=== PATIENT | male | born 1975 | race Hispanic/Latino ===

== ENCOUNTER 2017-09-12 14:42 | Emergency (ER) | payer SELFPAY ==
[2017-09-12] MEDS ORDERED: Lidocaine 1% 20 ML MDV ONE (15:19)
== END 2017-09-12 16:39 | disposition home or self-care (01) ==
LOC: NAV ERS 14:42
DX: L03.311 Cellulitis of abdominal wall (principal); E11.9 Type 2 diabetes mellitus without complications; E78.5 Hyperlipidemia, unspecified; I10 Essential (primary) hypertension; F17.210 Nicotine dependence, cigarettes, uncomplicated; F41.9 Anxiety disorder, unspecified; Z79.4 Long term (current) use of insulin; Z79.899 Other long term (current) drug therapy
CPT/HCPCS: 10060; 87070; 87077; 87205; J2001

== ENCOUNTER 2018-01-11 12:44 | Emergency (ER) | payer SELFPAY ==
[2018-01-11] MEDS ORDERED: Ondansetron ODT 4 MG TAB ONE (13:17)
--- NOTE | 2018-01-11 13:53 | CT ---
HEAD CT WITHOUT CONTRAST: 01/11/2018 HISTORY: Vomiting. Trauma. Pain. Unsteady gait. Slurred speech. COMPARISON: None. TECHNIQUE: Serial axial CT imaging was obtained at 5 mm intervals, from the vertex through the skull base, witho ut contrast. Coronal and sagittal reformatted imaging obtained. FINDINGS: The imaged paranasal sinuses/mastoid air cells are well aerated. There is no displaced calvarial fra cture. There is no intracranial hemorrhage, midline shift, mass effect, or ventricular enlargement. IMPRESSION: No intracranial hemorrhage or displaced calvarial fracture. POS: [facility]
== END 2018-01-11 14:05 | disposition home or self-care (01) ==
LOC: NAV ERS 12:44
DX: S06.0X0A Concussion without loss of consciousness, initial encounter (principal); S00.93XA Contusion of unspecified part of head, initial encounter; E11.9 Type 2 diabetes mellitus without complications; E78.5 Hyperlipidemia, unspecified; I10 Essential (primary) hypertension; F41.9 Anxiety disorder, unspecified; F17.210 Nicotine dependence, cigarettes, uncomplicated; Z79.899 Other long term (current) drug therapy; Z79.4 Long term (current) use of insulin; W22.09XA Striking against other stationary object, initial encounter
CPT/HCPCS: 70450; Q0162

== ENCOUNTER 2018-05-15 13:09 | Emergency (ER) | payer SELFPAY ==
[~2018-05-15 13:09] MED LIST: Iopamidol 370 76% 100 ML VIAL ONE
[2018-05-15] MEDS ORDERED: Ondansetron HCl/PF 4 MG/2 ML Vial ONE (13:25)
[2018-05-15] MEDS ORDERED: Sodium Chloride 0.9% 1,000 ML ONE ×3 (13:25→14:55)
[2018-05-15] MEDS ORDERED: Fentanyl 100 MCG/2 ML VIAL ONE ×2 (13:27→17:00)
[2018-05-15 13:51] LABS: #Basophils 0.1 thou/uL (0.0-0.2); #Lymphocytes 1.4 thou/uL (1.20-3.40); #Monocytes 0.3 thou/uL (0.11-0.59); #Neutrophils 112.4 thou/uL (1.40-6.50); %Basophils 0.7 % (0.0-1.0); %Eosinophils 0.1 % (0.0-10.0); %Monocytes 2.4 % (0.0-10.0); %Neutrophils 86.9 % (42.0-75.0); Differential Comment SCANNED; Hemoglobin 19.6 g/dL (14.0-18.0); Mean Corpuscular HGB CONC 32.6 g/dL (32.0-36.0); Mean Corpuscular Hemoglobin 28.1 pg (27.0-31.0); Mean Corpuscular Volume 86.3 fL (78.0-98.0); Mean Platelet Volume 6.3 fL (7.4-10.4); Platelet Count 440 thou/uL (130-400); RBC Distribution Width 12.3 % (11.5-14.5); Red Blood Cell (RBC) Count 6.98 mill/uL (4.70-6.10); White Blood Cell (WBC) Count 14.3 thou/uL (4.8-10.8)
[2018-05-15 13:56] LABS: Lactic Acid 3.1 mmol/L (0.5-2.2)
[2018-05-15 14:00] LABS: ALT (SGPT) 50 U/L (8-55); AST (SGOT) 31 U/L (5-34); Albumin 3.5 g/dL (3.5-5.0); Alkaline Phosphatase 86 U/L (40-150); Anion Gap 23 mmol/L (10-20); BUN (Urea Nitrogen) 17 mg/dL (8.9-20.6); Bilirubin, Total 0.5 mg/dL (0.2-1.2); Calc. Creatinine Clearance 0 mL/min (70-130); Carbon Dioxide 17 mmol/L (22-29); Chloride 98 mmol/L (98-107); Estimated GFR-MDRD 69; Globulin 4.1 g/dL (2.4-3.5); Glucose 312 mg/dL (70-105); Lipase 65 U/L (8-78); Potassium 3.9 mmol/L (3.5-5.1); Protein, Total 7.6 g/dL (6.0-8.3); Sodium 134 mmol/L (136-145)
[2018-05-15 14:01] LABS: CKMB 2.8 ng/mL (0-6.6); Troponin I 0.014 ng/mL (< 0.028)
[2018-05-15 14:11] LABS: Bilirubin Small (Negative); Blood, Urine Large (Negative); Glucose, Urine (Dipstick) >=1000 mg/dL (Negative); Leukocyte Negative (Negative); Nitrite Negative (Negative); Protein, Urine (Dipstick) > or equal to 300 mg/dL (Neg-Trace); Urobilinogen 0.2 mg/dL (0.2-1.0)
[2018-05-15 14:16] LABS: Clarity SL HAZY (Clear)
[2018-05-15 14:18] LABS: Bacteria/HPF Rare-Few HPF (None Seen); Squamous Epithelial 0-3 HPF (0-3); WBC/HPF 0-3 HPF (0-3)
[2018-05-15 14:20] LABS: Specific Gravity, Urine 1.043 (1.002-1.036)
--- NOTE | 2018-05-15 15:31 | RAD ---
AP VIEW OF THE CHEST: INDICATION: History of vomiting and chest pain. COMPARISON: None. FINDINGS: There are low lung volumes. No consolidation or pleural effusion or pneumothorax is evident. Heart size is accentuated by the exam technique and depth of inspiration. No acute osseous abnormality is evident. IMPRESSION: No definite acute cardiopulmonary abnormality. POS: [facility]
--- NOTE | 2018-05-15 16:02 | CT ---
CTA OF THE THORAX WITH IV CONTRAST AND 3D REFORMATTED IMAGING 05/15/18 INDICATION: History of chest pain, vomiting and shortness of breath. FINDINGS: The timing of the contrast bolus precludes evaluation for PE. No confluent air space opacity or pleur al effusion is noted. No pneumothorax is present. No enlarged lymph nodes are present. The abdomen is commented upon on the subsequently dictated CT of the abdomen and pelvis. No acute osseous abnormali ty is evident. IMPRESSION: 1. Suboptimal examination for evaluation of PE. The timing of the bolus precludes evaluation for PE. If clinical concern persists, a VQ scan may be helpful. 2. No definite acute cardiopulmonary abnormality. POS: [facility]
--- NOTE | 2018-05-15 16:06 | CT ---
CT OF THE ABDOMEN AND PELVIS WITH IV CONTRAST: 05/15/18 INDICATION: History of vomiting, right sided abdominal pain and chest pain. COMPARISON: Prior exam dated 05/12/16. FINDINGS: The lung bases are clear. There is mild fatty infiltration of the liver. The gallbladder is surgicall y absent. The pancreas and adrenal glands are unremarkable. There is stable left renal cyst. No hydro nephrosis is evident. No free fluid or large lymph nodes are evident. There is scattered diverticula involving the colon without evidence of active diverticulitis. Small bowel is of normal caliber. The appendix is probably surgically absent. The bladder, rectum, and perirectal soft tissues are unremark able. No definite acute osseous abnormality is evident. Mild wedge compression abnormality of T12 is stable. IMPRESSION: 1. No definite acute abnormality. 2. Fatty liver. 3. Stable left renal cysts. 4. Stable T12 compression abnormality. 5. Colonic diverticulosis. POS: [facility]
[2018-05-15 16:13] LABS: Lactic Acid 2.3 mmol/L (0.5-2.2)
[2018-05-15 16:16] LABS: Anion Gap 21 mmol/L (10-20); BUN (Urea Nitrogen) 14 mg/dL (8.9-20.6); Calc. Creatinine Clearance 0 mL/min (70-130); Calcium 8.5 mg/dL (7.8-10.44); Carbon Dioxide 13 mmol/L (22-29); Chloride 102 mmol/L (98-107); Estimated GFR-MDRD Greater than 90; Glucose 252 mg/dL (70-105); Potassium 3.7 mmol/L (3.5-5.1); Sodium 132 mmol/L (136-145)
== END 2018-05-15 17:38 | disposition short-term general hospital (02) ==
LOC: NAV ERS 13:09
DX: E86.0 Dehydration (principal); E11.65 Type 2 diabetes mellitus with hyperglycemia; R07.9 Chest pain, unspecified; E78.5 Hyperlipidemia, unspecified; I10 Essential (primary) hypertension; F17.210 Nicotine dependence, cigarettes, uncomplicated; Z79.4 Long term (current) use of insulin; Z79.899 Other long term (current) drug therapy
CPT/HCPCS: 71045; 71275; 74177; 80053; 81003; 81015; 82553; 83605; 83690; 84484; 85025; 85379; 93005; 94760; 96361; 96374; 96375; 96376; J2405; J3010; J7050

== ENCOUNTER 2018-06-06 22:17 | Emergency (ER) | payer SELFPAY ==
[2018-06-06] MEDS ORDERED: Mag-Al Plus 1200 MG/1200 MG/120 MG/30 ML UDCUP ONE (22:50)
[2018-06-06] MEDS ORDERED: Lidocaine Viscous Sol 2% 15 ml UD Cup ONE (22:50)
[2018-06-06] MEDS ORDERED: Pantoprazole 40 MG VIAL ONE (22:50)
[2018-06-06 23:00] LABS: INR-International Normal Ratio 0.8; Prothrombin Time 11.5 SEC (12.0-14.7)
[2018-06-06 23:05] LABS: #Basophils 0.1 thou/uL (0.0-0.2); #Eosinphils 0.3 thou/uL (0.0-0.7); #Lymphocytes 3.5 thou/uL (1.20-3.40); #Monocytes 0.5 thou/uL (0.11-0.59); #Neutrophils 4.6 thou/uL (1.40-6.50); %Basophils 1.2 % (0.0-1.0); %Eosinophils 3.8 % (0.0-10.0); %Lymphocytes 39.2 % (21.0-51.0); %Neutrophils 50.8 % (42.0-75.0); Hemoglobin 17.8 g/dL (14.0-18.0); Mean Corpuscular HGB CONC 32.7 g/dL (32.0-36.0); Mean Corpuscular Hemoglobin 28.2 pg (27.0-31.0); Mean Corpuscular Volume 86.3 fL (78.0-98.0); Mean Platelet Volume 6.2 fL (7.4-10.4); Platelet Count 414 thou/uL (130-400); RBC Distribution Width 12.5 % (11.5-14.5)
--- NOTE | 2018-06-06 23:08 | RAD ---
PORTABLE SEMIUPRIGHT FRONTAL CHEST RADIOGRAPH: Date: 06-06-18 Comparison: 05-15-18 History: Possible ingestion of ammonia. FINDINGS: Heart and mediastinal contours are within normal limits. No pneumothorax, pleural fluid, focal consol idation or alveolar edema. IMPRESSION: No acute findings. POS: [facility]
[2018-06-06 23:11] LABS: Chloride 99 mmol/L (98-107); Potassium 3.9 mmol/L (3.5-5.1); Sodium 134 mmol/L (136-145)
[2018-06-06 23:15] LABS: Carbon Dioxide 22 mmol/L (22-29)
[2018-06-06 23:16] LABS: Anion Gap 19 mmol/L (10-20); BUN (Urea Nitrogen) 26 mg/dL (8.9-20.6); Calc. Creatinine Clearance 0 mL/min (70-130); Estimated GFR-MDRD 74; Glucose 235 mg/dL (70-105)
[2018-06-06 23:17] LABS: AST (SGOT) 20 U/L (5-34); Albumin 3.5 g/dL (3.5-5.0); Alkaline Phosphatase 84 U/L (40-150); Bilirubin, Total 0.2 mg/dL (0.2-1.2); Calcium 8.9 mg/dL (7.8-10.44); Globulin 3.4 g/dL (2.4-3.5); Protein, Total 6.9 g/dL (6.0-8.3)
[2018-06-06 23:18] LABS: ALT (SGPT) 31 U/L (8-55)
== END 2018-06-06 23:24 | disposition short-term general hospital (02) ==
LOC: NAV ERS 22:17
DX: T54.3X1A Toxic effect of corrosive alkalis and alkali-like substances, accidental (unintentional), initial encounter (principal); E78.5 Hyperlipidemia, unspecified; I10 Essential (primary) hypertension; F17.210 Nicotine dependence, cigarettes, uncomplicated; F41.9 Anxiety disorder, unspecified; Z79.4 Long term (current) use of insulin
CPT/HCPCS: 71045; 80053; 85025; 85610; 96374; C9113

== ENCOUNTER 2020-09-16 18:21 | Emergency (ER) | payer SELFPAY ==
[2020-09-16] MEDS ORDERED: Lidocaine 1% (PF) 30 ML VIAL ONE (18:49)
[2020-09-16] MEDS ORDERED: Acetaminophen/Codeine 30-300mg Tablet ONE (18:58)
--- NOTE | 2020-09-16 19:32 | RAD ---
Frontal radiograph chest 5 views of the right RIBS: 09/16/2020 HISTORY: Injury FINDINGS: Frontal radiograph chest demonstrates no pneumothorax, pleural fluid, focal consolidation, or alveolar edema. Multiple dedicated images of the right RIBS demonstrate no displaced right-sided rib fracture. IMPRESSION: No acute osseous abnormality.
[2020-09-16] MEDS ORDERED: Sulfameth/Trimethoprim DS 800-160mg TAB ONE (20:23)
[2020-09-16] MEDS ORDERED: Bacitracin 1 PK ONE (20:23)
== END 2020-09-16 21:43 | disposition home or self-care (01) ==
LOC: NAV ERS 18:21
DX: S20.211A Contusion of right front wall of thorax, initial encounter (principal); L02.01 Cutaneous abscess of face; R00.0 Tachycardia, unspecified; E11.9 Type 2 diabetes mellitus without complications; Z79.4 Long term (current) use of insulin; E78.5 Hyperlipidemia, unspecified; I10 Essential (primary) hypertension; F17.210 Nicotine dependence, cigarettes, uncomplicated; W19.XXXA Unspecified fall, initial encounter
CPT/HCPCS: 10060; 87070; 87077; 87186; 87205; J2001